=== PATIENT | male | born 1975 | race Caucasian/White ===

== ENCOUNTER 2024-05-12 16:23 | Emergency (ER) | payer OTHER, SELFPAY ==
[2024-05-12 16:29] VITALS: BP 151/88; PULSE 79; TEMP 36.6; O2SAT 98; BMI 35.6
--- NOTE | 2024-05-12 16:44 | ED_ITS ---
HPI HPI - Head Injury General Chief complaint: Head Injury Stated complaint: Laceration to head Time Seen by Provider: 05/12/24 16:44 Source: patient Mode of arrival: walk-in Limitations: no limitations History of Present Illness HPI Narrative: Very pleasant woman in with a head injury. He was visiting [employer] here locally and struck his head on overhead structure. He did not have any loss of consciousness he has not been vomiting or complaining of severe headache since the event. No indication of a concussion syndrome. He is not exactly sure of his last tetanus update so we will get that taken care of. He is here with family members. He was not wearing a protective head gear. He does not have any paresis paresthesias tingling or numbness to the extremities and said his neck really is not bothering him much Related Data Allergies Allergy/AdvReac Type Severity Reaction Status Date / Time No Known Drug Allergies Allergy Verified 05/12/24 16:27 Opioid HPI Opioid Management Most Recent Pain and Opioid Data: No Data to Display Exam Narrative Exam Narrative: Well-hydrated well-nourished [place] x 3 GCS is 15 cognition and mentation are normal. Does not have any tenderness over the cervical spine. Examination of scalp he is got a small curvilinear 2 and half centimeter laceration in the midline of the scalp. There is no active bleeding or hematoma. Neurological examination: Cranial nerves memory are all normal. Constitutional Vital Signs, click to edit/add: Last Vital Signs Temp 98 F 05/12/24 16:29 Pulse 79 05/12/24 16:29 Resp 20 05/12/24 16:29 BP 151/88 H 05/12/24 16:29 Pulse Ox 98 05/12/24 16:29 Course Vital Signs Vital signs: Vital Signs Temperature 98 F 05/12/24 16:29 Pulse Rate 79 05/12/24 16:29 Respiratory Rate 20 05/12/24 16:29 Blood Pressure 151/88 H 05/12/24 16:29 Pulse Oximetry 98 05/12/24 16:29 Temperature 98 F 05/12/24 16:29 Pulse Rate 79 05/12/24 16:29 Respiratory Rate 20 05/12/24 16:29 Blood Pressure 151/88 H 05/12/24 16:29 Pulse Oximetry 98 05/12/24 16:29 MDM - Head Injury MDM Narrative Medical decision making narrative: Procedure note. The patient has a scalp laceration so after lidocaine 1% with epinephrine the wound was sterilely prepped and draped in usual fashion. There is no foreign bodies. Bleeding was controlled. It was reapproximated with 4, 4-0 nylon simple interrupted sutures. Wound and head injury sheet was discussed extensively with the and the patient there for the time that he is to rest, not drive use Tylenol and apply Eyes: To the wound tonight Discharge Plan Discharge Stand Alone Forms: Portal Instructions Chief Complaint: Head Injury Clinical Impression: Laceration of scalp Patient Disposition: Home, Self-Care Time of Disposition Decision: 17:51 Print Language: Vietnamese Additional Instructions: Suture is out in 5 to 7 days. Apply ice. May have Tylenol. Return for any evidence of worsening concussion symptoms. Referrals: Physician,Non-Staff, MD [Primary Care Provider] - 1 week
[2024-05-12] MEDS: LIDOCAINE HCL 1%-EPINEPHRINE 1:100,000 20 ML MDV INJ (17:40)
[2024-05-12 17:55] VITALS: BP 151/89; PULSE 74; O2SAT 99
[2024-05-12] MEDS: ADACEL DIPH,PERTUSS(ACELL),TET VAC/PF 0.5 ML ADULT SYRINGE IM (18:15)
== END 2024-05-12 18:20 | disposition home or self-care (01) ==
PROVIDERS: Emergency Provider Emergency Medicine Emergency Medical Services
DX: S01.01XA Laceration without foreign body of scalp, initial encounter (principal); Z23 Encounter for immunization; W22.8XXA Striking against or struck by other objects, initial encounter
CPT/HCPCS: 12001; 90471; 90715; 99284